=== PATIENT | male | born 1995 | race Caucasian/White ===

== ENCOUNTER 2017-07-19 03:09 | Emergency (ER) | payer BC ==
[~2017-07-19] VITALS: Ht 172.7 cm; Wt 56.8 kg
[2017-07-19 04:28] LABS: ALCOHOL(ethanol),MEDICAL 111 mg/dL; LIPASE 87 U/L (23-300)
[2017-07-19 05:30] VITALS: BP 117/65; PULSE 76
== END 2017-07-19 05:33 | disposition home or self-care (01) ==
LOC: COL.ER 03:09
PROVIDERS: Emergency Medicine
DX: F10.129 Alcohol abuse with intoxication, unspecified (principal); K29.20 Alcoholic gastritis without bleeding
CPT/HCPCS: C9113; J2405; J2550; J7030